=== PATIENT | female | born 1970 | race Caucasian/White ===

== ENCOUNTER 2021-07-10 01:35 | Day surgery (SDC) | payer BC, SELFPAY ==
[2021-06-29 13:04] VITALS: BMI 20.9
[2021-07-10 07:47] VITALS: BP 129/77; PULSE 82; RESP 18; TEMP 36.4; O2SAT 100; BMI 20.5
--- NOTE | 2021-07-10 07:48 | P.PNAN_ITS ---
Anes - Initial Pre Proc Eval Procedure: Operation Date: 07/10/21 08:30 Proposed Procedures p Screening Colonoscopy - Valdemar Garg MD Date/Time: 07/10/21 07:48 Surgeon: Valdemar Garg MD Pre Op Diagnosis: neoplasm screening Patient Data Age: 50 Gender: F Height: 1.68 m Weight: 59 kg Allergies Allergy/AdvReac Type Severity Reaction Status Date / Time codeine Allergy Mild Itching Verified 07/10/21 07:40 Home Medications Medication Instructions Recorded Confirmed Type cholecalciferol (vitamin D3) 50 mcg PO DAILY 12/09/20 06/29/21 History [Vitamin D3] letrozole 2.5 mg PO DAILY 12/09/20 06/29/21 History ferrous sulfate 325 mg PO DAILY 06/29/21 06/29/21 History magnesium oxide 400 mg PO BID 06/29/21 06/29/21 History mecobalamin (vitamin B12) 2,500 mcg PO WEEKLY 06/29/21 06/29/21 History Patient hx anesthesia problems: none Family hx anesthesia problems: none Results Review: All pre-operative results and documents have been reviewed as part of the pre-operative evaluation. [facility] Past Medical History Medical History (Updated 07/10/21 @ 07:49 by Leonidas Knowles MD) Anemia Breast CA Social History Social History Smoking status: Never smoker Living arrangements: with family Spiritual care concerns: No Anes - Eval Final PreProcedure Day of Procedure 07/10/21 07:48 Patient weight: overweight Heart: regular rate and rhythm Lungs: clear to auscultation and normal air movement Airway: Mallampati scale class II Neurological: alert and oriented Last oral intake: >/= 8 hours ASA classification: II Emergent: no Anesthetic plan: proceed Anesthesia type and monitoring: general GIVS Results Review: All pre-operative results and documents have been reviewed as part of the pre-operative evaluation. Informed Consent: The patient's anesthetic plan and its attendant risks and benefits were discussed with the patient/family/POA. Questions were solicited and answers provided to the satisfaction of the patient/family/POA.
[2021-07-10] MEDS: LACTATED RINGERS 1,000 ML 150 ML IV CONT (07:56)
--- NOTE | 2021-07-10 08:13 | WPDGICN ---
Assessment and Plan Assessment and plan (1) Encounter for screening colonoscopy: Code(s): Z12.11 - Encounter for screening for malignant neoplasm of colon Status: Acute Assessment and Plan: Patient presents today for screening colonoscopy. Further recommendations will be given after endoscopy. (2) Family history of colonic polyps: Code(s): Z83.71 - Family history of colonic polyps Status: Acute Assessment and Plan: Patient's mother is reported to have colon polyps for this reason consider follow-up colonoscopy in 5 years. GI Consult Note Consult date/time: 07/10/21 08:13 HPI: Scarlett Shah is a 50 year old female Presents for screening colonoscopy. Patient reports that her current weight appetite and bowel movements are normal. She denies abdominal pain. She has had no bleeding. Family history is significant her mother may have had colon polyps. Patient has prior history is significant for breast carcinoma. She has a prior hysterectomy. Review of Systems Review of Systems: All systems reviewed & are unremarkable except as noted in HPI and below PMFSH Past Medical History Medical History (Updated 07/10/21 @ 08:15 by Valdemar Garg MD) Anemia Breast CA Social History Social History Smoking status: Never smoker Living arrangements: with family Spiritual care concerns: No Meds Home Medications and Allergies Home Medications Medication Instructions Recorded Confirmed Type cholecalciferol (vitamin D3) 50 mcg PO DAILY 12/09/20 06/29/21 History [Vitamin D3] letrozole 2.5 mg PO DAILY 12/09/20 06/29/21 History ferrous sulfate 325 mg PO DAILY 06/29/21 06/29/21 History magnesium oxide 400 mg PO BID 06/29/21 06/29/21 History mecobalamin (vitamin B12) 2,500 mcg PO WEEKLY 06/29/21 06/29/21 History Allergies Allergy/AdvReac Type Severity Reaction Status Date / Time codeine Allergy Mild Itching Verified 07/10/21 07:40 Vital Signs Vital Signs - 24 hr 07/10/21 07:47 Temperature 97.5 F L Pulse Rate 82 Respiratory Rate 18 Blood Pressure 129/77 Pulse Oximetry 100 Exam Narrative: Physical exam reveals patient be alert. Vital signs stable. HEENT exam is unremarkable. Patient is anicteric. Lungs are clear to auscultation and percussion. Heart is without murmur or extra sounds. Abdominal exam bowel sounds are present soft nontender with no organomegaly. Digital external rectal exam is normal.
[2021-07-10 08:45] VITALS: BP 106/55; PULSE 69; RESP 15; O2SAT 100
[2021-07-10 08:54] VITALS: BP 100/61; PULSE 69; RESP 16; O2SAT 100
[2021-07-10 09:04] VITALS: BP 109/67; PULSE 66; RESP 16; O2SAT 100
== END 2021-07-10 09:16 | disposition home or self-care (01) ==
PROVIDERS: PCP Physician Assistant Medical; Visit Provider Internal Medicine Gastroenterology
PROC: 0DJD8ZZ Inspection of Lower Intestinal Tract, Via Natural or Artificial Opening Endoscopic (ICD-10-PCS; CPT 45378; principal; 2021-07-10 08:30)
DX: Z12.11 Encounter for screening for malignant neoplasm of colon (principal); K64.8 Other hemorrhoids; Z83.71 Family history of colonic polyps; D64.9 Anemia, unspecified; Z85.3 Personal history of malignant neoplasm of breast; Z79.811 Long term (current) use of aromatase inhibitors
CPT/HCPCS: 45378; J2704; J7120